=== PATIENT | male | born 1965 | race African-American/Black ===

== ENCOUNTER 2017-10-15 11:06 | Inpatient (IN) | payer MEDICAID, OTHER ==
[2017-10-15 11:36] LABS: ABS Basophils 0 10^3/ul (0-0.2); ABS Eosinophils 0.2 10^3/ul (0-0.6); ABS Lymphocytes 1.8 10^3/ul (1.0-4.8); ABS Monocytes 0.4 10^3/ul (0-0.8); ABS Neutrophils 2.8 10^3/ul (1.5-7.7); ABS Nucleated RBC 0 10^3/ul; Eosinophil % 3.5 % (0-6); Hematocrit 40 % (42-52); Hemoglobin 13.7 g/dl (14.0-18.0); Lymphocyte % 34.6 % (25-47); Mean Corpuscular HGB Conc 34 g/dl (31-36); Mean Corpuscular Hemoglobin 32 pg (27-31); Mean Corpuscular Volume 93 fL (80-94); Mean Platelet Volume 7.6 um3 (7.4-10.4); Nucleated Red Blood Cells % 0; Platelet Count 179 10^3/ul (150-450); Red Blood Count 4.34 10^6/ul (4.0-5.4); Red Cell Distribution Width 14 % (10.5-15); White Blood Count 5.3 10^3/ul (3.5-10.8)
[2017-10-15 11:40] LABS: Urine Appearance Clear; Urine Blood Negative (Negative); Urine Color Yellow; Urine Ketones Negative (Negative); Urine Protein Negative (Negative); Urine Specific Gravity 1.014 (1.010-1.030); Urine Urobilinogen Negative (Negative)
[2017-10-15 11:56] LABS: EGFR Non-African American 87.5 (>60)
[2017-10-15] MEDS ORDERED: LORazepam TAB(*) 1 MG PO ONE (17:19)
[2017-10-15] MEDS ORDERED: Haloperidol TAB* 5 MG PO ONE (17:19)
[2017-10-15] MEDS ORDERED: chlorproMAZINE TAB* 50 MG PO PRN (21:00)
[2017-10-15] MEDS ORDERED: diPHENhydraMINE PO* 50 MG PO PRN (21:00)
[2017-10-16] MEDS ORDERED: Acetaminophen TAB* 325 MG PO PRN (00:14)
[2017-10-16] MEDS ORDERED: Al Hydrox/Mg Hydrox/Simet LIQ* 30 ML UDC PO PRN (00:14)
--- NOTE | 2017-10-16 01:28 | ED ---
Victor M Nolan Rebecca, scribed for Aleksandr Kimball MD on 10/15/17 at 2100 . Progress - Progress Note Progress Note: Pt was signed out by Dr. Zeng, pending dispo, awaiting MHE. Course/Dx - Course Course Of Treatment: Pt was signed out by Dr. Zeng, pending dispo, awaiting MHE. Upon completion of MHE and consultation with Dr. Mendoza it has been determined that the pt will be admitted. He will be admitted with a Dx of polysubstance abuse. - Diagnoses Provider Diagnoses: Polysubstance abuse Discharge - Sign-Out/Discharge Documenting (check all that apply): Discharge/Admit/Transfer - Admit, Receiving Sign-Out Receiving patient FROM: Elijah Zeng - Discharge Plan Condition: Stable [place] [place]errals: Jose De Jesus Gonzalez MD [Primary Care Provider] - The documentation as recorded by the Victor M hope Rebecca accurately reflects the service I personally performed and the decisions made by , Aleksandr Kimball MD.
[2017-10-16] MEDS ORDERED: Vitamin THERAPEUTIC TAB PO SCH (09:00)
--- NOTE | 2017-10-16 10:44 | HP ---
H&P (Free Text) History and Physical: Psychiatric Attending History and Physical NAME: Bernardo Nelson : 1965 AGE: 52 PROVIDER: Eladio Black D.O. DATE OF ADMISSION: 10/16/2017 JUSTIFICATION FOR ADMISSION: Patient transferred to ED by inpatient drug rehabilitation program after verbalizing suicidal ideation . Patient requires 24 hour supervision on locked inpatient psychiatric unit as he is dangerous to self. He also requires imminent treatment for depression to stabalize his mental status. CHIEF COMPLAINT: "...I was thinking about my mother and got really depressed... 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 Patient reports that he had oset of alcohol and cannabis use at age 25 and onset of depression in his early 30's. He denies prior history of psychiatric admission but has multiple inpatient drug rehab admissions. Patient reports that he has been receiving outpatient treatment for his depression and substance use disorders for the past 20 years. longest sobriety (from ETOH) was 2 years which ended about 3 months ago when he relapsed. He reports that he had one suicide attempt in 2005 (ingested antifreeze) which was impulsive and occurred soon after learning that his child of SIDS. He called an ambulance, was treated in ED and released. Patient is receiving [facility] substance use services, case management and housing through [facility] ([facility] He has his own apartment which was obtained for him by this program. Patient reports that he has been poorly compliant with appointments to his therapist/case packer and is not receiving medication management through [facility] provider. Patient reports that he inconsistently takes his medication and doesnt have a regular provider who prescribes it. He will go to [facility] at [facility] when he runs out of medication. Patient went to [facility] for detox several weeks ago and subsequently was transferred to [facility] [place] where he completed 2 weeks of inpatient drug rehab. Upon discharge, he began drinking and after 3 days he brought himself to [facility] where he was transferred to [facility] for another inpatient rehabilitation stay. Patient reports that he stopped his psychiatric medications about one week ago and was beginning to feel depressed. He was in a therapy group and other peers were talking about family members who had . Patient reports this was a trigger for him to think about the of his mother 6 months ago. He reports that he never cried at the and to this day has not grieved but suppressed feelings. He reports he became despondent that day and told a staff member during a one to one that he was not feeling safe. He was subsequently [place] [facility] [place] psychiatric assessment of his safety and stabalization. PAST PSYCHIATRIC HISTORY: see HPI above. no history of SIB. denies inpatient psychiatric treatment in past other than as part of a dual diagnosis drug rehabilitation admission. SUBSTANCE ABUSE HISTORY: began using Cannabis and Alcohol at age 25. smokes cannabis daily. patient reports that he has struggled with alcohol use for past 25 years. He prefers beer and often will drink up to a case of beer daily. denies history of blackouts, withdrawal seizures, delirium tremens in past. 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 denies any other known medical probelms CURRENT HOME MEDICATIONS: Acetaminophen TAB* [Tylenol TAB*] 650 mg PO Q4H PRN 10/15/17 [History Confirmed 10/15/17] Folic Acid TAB* [Folvite TAB*] 1 mg PO DAILY 10/15/17 [History Confirmed ] Gabapentin CAP(*) [Neurontin 100 mg CAP(*)] 100 mg PO TID 10/15/17 [History Confirmed 10/15/17] Ibuprofen TAB* [Advil TAB*] 400 mg PO Q4HR PRN 10/15/17 [History Confirmed 10/15] Melatonin 5 mg PO BEDTIME 10/15/17 [History Confirmed 10/15/17] Multivitamins/Minerals TAB* [Theragran/minerals TAB*] 1 tab PO DAILY 10/15/17 [ History Confirmed 10/15/17] Nicotine Lozenge* 1 mg PO Q2H PRN 10/15/17 [History Confirmed 10/15/17] Sertraline* [Zoloft*] 25 mg PO DAILY 10/15/17 [History Confirmed 10/15/17] Thiamine TAB* [Vitamin B-1 TAB*] 100 mg PO DAILY 10/15/17 [History Confirmed 09/27] hydrOXYzine HCL TAB* [Atarax 25 MG TAB*] 25 mg PO QID PRN 10/15/17 [History Confirmed 10/15/17] traZODone TAB* [Desyrel TAB*] 50 mg PO BEDTIME 10/15/17 [History Confirmed 10/15] ALLERGIES: SHELLFISH FAMILY PSYCHIATRIC HISTORY: none FAMILY/PSYCHOSOCIAL HISTORY: patient reports that he was an only child and was raised by his mother (who he reports was a physician) and his father (who he reports was an radiological engineer) in [place]. denies history of trauma growing up. graduated high school has worked sporadically including several years at [employer] in [facility] but often was fired from jobs due to poor work performance secondary to his substance use. He reports that he lived with mother of his 4 daughters for many years and that together they raised their children. mother of his daughters several years ago of poisonous inhalation while cleaning bathroom. denies current legal probelms. denies being on probation or parole. REVIEW OF SYSTEMS: 14 point review of systems is non contributory: denies blurry vision, photophobia, eye pain, upper respiratory symptoms, dizziness, malaise, fatigue, lethargy, fever, neck stiffness, ear pain, rash, head ache, difficulty walking, change in gait, tremor, tics, involuntary movements, sob, excercise intolerance, chest pain, palpitations, bounding pulse, abdominal pain, nausea, vomiting, diarrhea, constipation, change in bowel consistency, body pain, swelling of extremities, poor coordination, masses in neck, groin or axillae PHYSICAL EXAMINATION: Appearance: well appearing, no pain distress, Well-nourished, calm,cooperative Skin: Warm, color reflects adequate perfusion, no evidence of self harm Head: Normal Head/Face inspection, Atraumatic Eyes: Conjunctiva clear ENT: Normal inspection Neck: Supple, no nodes, no JVD. Respiratory: Lungs clear, Normal breath sounds, no respiratory distress, 6 cm well healed scar below left clavicle on anterior chest. Cardio: RRR, No murmur, pulses normal, brisk capillary refill Abdomen: soft, nontender, + bowel sounds, no masses palpable, no HSM Musculoskeletal: Strength Intact/ ROM intact. No calf tenderness. No edema. Neuro: Alert and orietnedx3, muscle tone normal, no focal deficits, speech clear , DTR's normoreflexive in upper and lower extremities, strength 5/5 and bilaterally symmetric in upper and lower extremities. no tremor or evidence of EPS Vital Signs: Temp Pulse Resp BP Pulse Ox 97.9 F 86 18 93/68 100 10/16/17 07:44 10/16/17 07:44 10/16/17 07:44 10/16/17 07:44 10/16/17 07:44 MENTAL STATUS EXAMINATION: Patient was seated in group when I approached him for an interview. He was quite jovial and outspoken announcing that he was happy to be seeing his doctor and thanked me for "saving him from the group" patient is dressed casually. He has adequate hygiene. speech normal rate, volume, and rhythm. normal fluency and spontaneity. patient talks somewhat glibly and appears to favor saying things that he believes will make him appear favorable. Thought process goal directed. Thought content: patient denies SI,HI, AH,VH. no evidence of delusions, paranoid ideation. no evidence of thought disorder. Mood: patient reports that he is not feeling depressed or sad today. patient's affect is not dysphoric, flat or constricted. He shows broad range of affect including smiling. He makes good eye contact and appears to enjoy conversing with interviewer. He reports that his alcohol and marijuana use causes him to feel depressed especially after having binged. He states that he does not wish to return to [facility] inpatient program and would prefer to terminate from program and return to his outpatient substance treatment program in [place]. alert fully oriented. memory,concentration and attention span intact. insight intact judgment appears intact. LABORATORY DATA: Laboratory Results - last 24 hr 10/15/17 10/15/17 10/15/17 11:21 11:21 11:24 WBC 5.3 RBC 4.34 Hgb 13.7 L Hct 40 L MCV 93 MCH 32 H MCHC 34 RDW 14 Plt Count 179 MPV 7.6 Neut % (Auto) 53.5 Lymph % (Auto) 34.6 Dawes % (Auto) 7.7 H Eos % (Auto) 3.5 Baso % (Auto) 0.7 Absolute Neuts (auto) 2.8 Absolute Lymphs (auto) 1.8 Absolute Monos (auto) 0.4 Absolute Eos (auto) 0.2 Absolute Basos (auto) 0 Absolute Nucleated RBC 0 Nucleated RBC % 0 Sodium 142 Potassium 3.7 Chloride 106 Carbon Dioxide 30 Anion Gap 6 BUN 13 Creatinine 0.91 Est GFR ( Amer) 112.5 Est GFR (Non-Af Amer) 87.5 BUN/Creatinine Ratio 14.3 Glucose 144 H Hemoglobin A1c Calcium 9.5 Total Bilirubin 0.20 AST 15 ALT 13 Alkaline Phosphatase 59 Total Protein 6.7 Albumin 4.1 Globulin 2.6 Albumin/Globulin Ratio 1.6 Triglycerides Cholesterol LDL Cholesterol HDL Cholesterol TSH 1.47 Urine Color Yellow Urine Appearance Clear Urine pH 6.0 Ur Specific Silver Star 1.014 Urine Protein Negative Urine Ketones Negative Urine Blood Negative Urine Nitrate Negative Urine Bilirubin Negative Urine Urobilinogen Negative Ur Leukocyte Esterase Negative Urine Glucose Negative Urine Ascorbic Acid * A Salicylates < 2.50 Urine Opiates Screen Acetaminophen < 15 Ur Barbiturates Screen Ur Phencyclidine Scrn Ur Amphetamines Screen U Benzodiazepines Scrn Urine Cocaine Screen U Cannabinoids Screen Serum Alcohol < 10 10/15/17 10/16/17 10/16/17 11:24 09:17 09:17 WBC RBC Hgb Hct MCV MCH MCHC RDW Plt Count MPV Neut % (Auto) Lymph % (Auto) Dawes % (Auto) Eos % (Auto) Baso % (Auto) Absolute Neuts (auto) Absolute Lymphs (auto) Absolute Monos (auto) Absolute Eos (auto) Absolute Basos (auto) Absolute Nucleated RBC Nucleated RBC % Sodium Potassium Chloride Carbon Dioxide Anion Gap BUN Creatinine Est GFR ( Amer) Est GFR (Non-Af Amer) BUN/Creatinine Ratio Glucose Hemoglobin A1c 6.0 H Calcium Total Bilirubin AST ALT Alkaline Phosphatase Total Protein Albumin Globulin Albumin/Globulin Ratio Triglycerides 207 Cholesterol 177 LDL Cholesterol 78 HDL Cholesterol 57.6 TSH Urine Color Urine Appearance Urine pH Ur Specific Silver Star Urine Protein Urine Ketones Urine Blood Urine Nitrate Urine Bilirubin Urine Urobilinogen Ur Leukocyte Esterase Urine Glucose Urine Ascorbic Acid Salicylates Urine Opiates Screen None detected Acetaminophen Ur Barbiturates Screen None detected Ur Phencyclidine Scrn None detected Ur Amphetamines Screen None detected U Benzodiazepines Scrn Presumptive positive A Urine Cocaine Screen None detected U Cannabinoids Screen None detected Serum Alcohol Laboratory Last Values WBC 5.3 10^3/ul (3.5-10.8) 10/15/17 11:21 RBC 4.34 10^6/ul (4.0-5.4) 10/15/17 11:21 Hgb 13.7 g/dl (14.0-18.0) L 10/15/17 11:21 Hct 40 % (42-52) L 10/15/17 11:21 MCV 93 fL (80-94) 10/15/17 11:21 MCH 32 pg (27-31) H 10/15/17 11:21 MCHC 34 g/dl (31-36) 10/15/17 11:21 RDW 14 % (10.5-15) 10/15/17 11:21 Plt Count 179 10^3/ul (150-450) 10/15/17 11:21 MPV 7.6 um3 (7.4-10.4) 10/15/17 11:21 Neut % (Auto) 53.5 % (38-83) 10/15/17 11:21 Lymph % (Auto) 34.6 % (25-47) 10/15/17 11:21 Dawes % (Auto) 7.7 % (0-7) H 10/15/17 11:21 Eos % (Auto) 3.5 % (0-6) 10/15/17 11:21 Baso % (Auto) 0.7 % (0-2) 10/15/17 11:21 Absolute Neuts (auto) 2.8 10^3/ul (1.5-7.7) 10/15/17 11:21 Absolute Lymphs (auto) 1.8 10^3/ul (1.0-4.8) 10/15/17 11:21 Absolute Monos (auto) 0.4 10^3/ul (0-0.8) 10/15/17 11:21 Absolute Eos (auto) 0.2 10^3/ul (0-0.6) 10/15/17 11:21 Absolute Basos (auto) 0 10^3/ul (0-0.2) 10/15/17 11:21 Absolute Nucleated RBC 0 10^3/ul 10/15/17 11:21 Nucleated RBC % 0 10/15/17 11:21 Sodium 142 mmol/L (139-145) 10/15/17 11:21 Potassium 3.7 mmol/L (3.5-5.0) 10/15/17 11:21 Chloride 106 mmol/L (101-111) 10/15/17 11:21 Carbon Dioxide 30 mmol/L (22-32) 10/15/17 11:21 Anion Gap 6 mmol/L (2-11) 10/15/17 11:21 BUN 13 mg/dL (6-24) 10/15/17 11:21 Creatinine 0.91 mg/dL (0.67-1.17) 10/15/17 11:21 Est GFR ( Amer) 112.5 (>60) 10/15/17 11:21 Est GFR (Non-Af Amer) 87.5 (>60) 10/15/17 11:21 BUN/Creatinine Ratio 14.3 (8-20) 10/15/17 11:21 Glucose 144 mg/dL (70-100) H 10/15/17 11:21 Hemoglobin A1c 6.0 % (4.0-5.6) H 10/16/17 09:17 Calcium 9.5 mg/dL (8.6-10.3) 10/15/17 11:21 Total Bilirubin 0.20 mg/dL (0.2-1.0) 10/15/17 11:21 AST 15 U/L (13-39) 10/15/17 11:21 ALT 13 U/L (7-52) 10/15/17 11:21 Alkaline Phosphatase 59 U/L (34-104) 10/15/17 11:21 Total Protein 6.7 g/dL (6.4-8.9) 10/15/17 11:21 Albumin 4.1 g/dL (3.2-5.2) 10/15/17 11:21 Globulin 2.6 g/dL (2-4) 10/15/17 11:21 Albumin/Globulin Ratio 1.6 (1-3) 10/15/17 11:21 Triglycerides 207 mg/dL 10/16/17 09:17 Cholesterol 177 mg/dL 10/16/17 09:17 LDL Cholesterol 78 mg/dL 10/16/17 09:17 HDL Cholesterol 57.6 mg/dL 10/16/17 09:17 TSH 1.47 mcIU/mL (0.34-5.60) 10/15/17 11:21 Urine Color Yellow 10/15/17 11:24 Urine Appearance Clear 10/15/17 11:24 Urine pH 6.0 (5-9) 10/15/17 11:24 Ur Specific Silver Star 1.014 (1.010-1.030) 10/15/17 11:24 Urine Protein Negative (Negative) 10/15/17 11:24 Urine Ketones Negative (Negative) 10/15/17 11:24 Urine Blood Negative (Negative) 10/15/17 11:24 Urine Nitrate Negative (Negative) 10/15/17 11:24 Urine Bilirubin Negative (Negative) 10/15/17 11:24 Urine Urobilinogen Negative (Negative) 10/15/17 11:24 Ur Leukocyte Esterase Negative (Negative) 10/15/17 11:24 Urine Glucose Negative (Negative) 10/15/17 11:24 Urine Ascorbic Acid * (Negative) A 10/15/17 11:24 Salicylates < 2.50 mg/dL (<30) 10/15/17 11:21 Urine Opiates Screen None detected (None Detect) 10/15/17 11:24 Acetaminophen < 15 mcg/mL 10/15/17 11:21 Ur Barbiturates Screen None detected (None Detect) 10/15/17 11:24 Ur Phencyclidine Scrn None detected (None Detect) 10/15/17 11:24 Ur Amphetamines Screen None detected (None Detect) 10/15/17 11:24 U Benzodiazepines Scrn Presumptive positive (None Detect) A 10/15/17 11:24 Urine Cocaine Screen None detected (None Detect) 10/15/17 11:24 U Cannabinoids Screen None detected (None Detect) 10/15/17 11:24 Serum Alcohol < 10 mg/dL (<10) 10/15/17 11:21 IMPRESSION: 52 yo with history of depression and chronic substance use (alcohol and Cannabis ) transferred from [facility] for verbalizing that he was not feeling safe. Patient's mental status does not reveal current depressive syndrome. patient denies suicidal ideation at this time. will monitor for another 24 hours and if patient remains euthymic and denies SI, we will discharge him back to [facility] inpatient rehab program. DIAGNOSES: non compliance with medication alcohol use disorder Cannabis Use disorder unspecified depressive disorder PLAN: admit to [facility] on voluntary status. full code. will change patient to q 30 min observation status monitor patient 24 hours. if mood remains euthymic and no indication of SI, we will transfer patient back to [facility]. individual, group and milieu therapy. social science research assistant to see patient for assessment, therapy and discharge planning. daily reassessment by psychiatrist will restart Zoloft 150 mg qhs, Trazodone 50 mg qhs, Seroquel 100mg qhs with repeat X 1 prn insomnia, Gabapentin 100 mg TID, asa 81 mg daily, multivitamin daily labs al within normal limits
[2017-10-16] MEDS ORDERED: Sertraline* 100 MG TAB PO ONE (12:43)
[2017-10-16] MEDS ORDERED: QUEtiapine TAB* 100 MG PO PRN (12:44)
[2017-10-16] MEDS: Gabapentin CAP(*) 100 MG PO SCH ×2 (14:25→22:08)
[2017-10-16] MEDS: Multivitamins/Minerals TAB PO SCH (17:19)
[2017-10-16] MEDS: Aspirin EC TAB* 81 MG TAB.EC PO SCH (17:19)
[2017-10-16] MEDS ORDERED: QUEtiapine TAB* 100 MG PO SCH (21:00)
[2017-10-16] MEDS ORDERED: traZODone TAB* 50 MG TAB PO SCH (21:00)
[2017-10-17 07:23] VITALS: BP 107/81
[2017-10-17] MEDS ORDERED: Sertraline* 100 MG TAB PO SCH (09:00)
[2017-10-17] MEDS: Gabapentin CAP(*) 100 MG PO SCH ×2 (09:32→13:55)
[2017-10-17] MEDS: Multivitamins/Minerals TAB PO SCH (09:32)
[2017-10-17] MEDS: Aspirin EC TAB* 81 MG TAB.EC PO SCH (09:32)
--- NOTE | 2017-10-17 10:45 | DS ---
Discharge Planning - Discharge Planning Medications: Current Medications Acetaminophen (Tylenol Tab*) 650 mg PO Q4H PRN PRN Reason: PAIN or TEMP > 101 F Al Hydrox/Mg Hydrox/Simethicone (Maalox Plus*) 30 ml PO Q4H PRN PRN Reason: INDIGESTION Aspirin (Aspirin Ec Tab*) 81 mg PO DAILY [facility] Last Admin: 10/17/17 09:32 Dose: 81 mg Chlorpromazine HCl (Thorazine Tab*) 50 mg PO ONCE PRN PRN Reason: MD DISCRETION Diphenhydramine HCl (Benadryl Po*) 50 mg PO ONCE PRN PRN Reason: MD DISCRETION Gabapentin (Neurontin Cap(*)) 100 mg PO TID [facility] Last Admin: 10/17/17 09:32 Dose: 100 mg Multivitamins/Minerals (Theragran/Minerals Tab*) 1 tab PO DAILY [facility] Last Admin: 10/17/17 09:32 Dose: 1 tab Quetiapine Fumarate (Seroquel Tab*) 100 mg PO BEDTIME [facility] Last Admin: 10/16/17 22:09 Dose: 100 mg Quetiapine Fumarate (Seroquel Tab*) 100 mg PO BEDTIME PRN PRN Reason: insomnia Sertraline HCl (Zoloft*) 150 mg PO DAILY [facility] Last Admin: 10/17/17 09:32 Dose: 150 mg Trazodone HCl (Desyrel Tab*) 50 mg PO BEDTIME [facility] Last Admin: 10/16/17 22:09 Dose: 50 mg Discharge Planning: Prescriptions provided for discharge [] Yes [] No Follow up care details as per social work arrangements. Patient response to discharge plan: [] eager for discharge [] agreeable with discharge plan [] ambivalent about discharge [] disagrees with discharge today
--- NOTE | 2017-10-18 08:41 | ED ---
Saw Nolan Stephanie, scribed for Elijah Zeng MD on 10/15/17 at 1130 . Psychiatric Complaint - HPI Summary HPI Summary: The pt is a 52 y/o M BIBA to the ED with c/o SI that began about 6 months ago s/ p of mother. He states he does not feel safe alone and he does not feel like living. Symptoms include sleep disturbance and prior attempt of suicide. He states he stopped taking his medications 2 weeks ago because he felt as though he didnt need them anymore. The pt drinks about one case of ETOH per day but has not drank ETOH since 10/08/17. He reports opiates in his system currently due to detox. - History Of Current Complaint Chief Complaint: EDMentalHealth Time Seen by Provider: 10/15/17 11:10 Hx Obtained From: Patient Onset/Duration: Gradual Onset, Lasting Weeks, Still Present Timing: Constant Severity Currently: Moderate Character: Depressed Aggravating Factor(s): Recent Stress - of mother 6 months ago Alleviating Factor(s): Nothing Associated Signs And Symptoms: Positive: Sleep Disturbance Has Suicidal: Reports: Thoughts - Allergies/Home Medications Allergies/Adverse Reactions: Allergies Allergy/AdvReac Type Severity Reaction Status Date / Time shellfish derived Allergy Severe Airway Verified 10/15/17 11:36 Obstruction Home Medications: Home Medications Acetaminophen TAB* [Tylenol TAB*] 650 mg PO Q4H PRN 10/15/17 [History Confirmed 10/15/17] Folic Acid TAB* [Folvite TAB*] 1 mg PO DAILY 10/15/17 [History Confirmed ] Gabapentin CAP(*) [Neurontin 100 mg CAP(*)] 100 mg PO TID 10/15/17 [History Confirmed 10/15/17] Ibuprofen TAB* [Advil TAB*] 400 mg PO Q4HR PRN 10/15/17 [History Confirmed 10/15] Melatonin 5 mg PO BEDTIME 10/15/17 [History Confirmed 10/15/17] Multivitamins/Minerals TAB* [Theragran/minerals TAB*] 1 tab PO DAILY 10/15/17 [ History Confirmed 10/15/17] Nicotine Lozenge* 1 mg PO Q2H PRN 10/15/17 [History Confirmed 10/15/17] Sertraline* [Zoloft*] 25 mg PO DAILY 10/15/17 [History Confirmed 10/15/17] Thiamine TAB* [Vitamin B-1 TAB*] 100 mg PO DAILY 10/15/17 [History Confirmed 09/27] hydrOXYzine HCL TAB* [Atarax 25 MG TAB*] 25 mg PO QID PRN 10/15/17 [History Confirmed 10/15/17] traZODone TAB* [Desyrel TAB*] 50 mg PO BEDTIME 10/15/17 [History Confirmed 10/15] PMH/Surg Hx/FS Hx/Imm Hx Sensory History: Denies: Hx Legally Blind EENT History: Denies: Hx Deafness - Surgical History Surgery Procedure, Year, and Place: NONE Infectious Disease History: No Infectious Disease History: Denies: Traveled Outside the [place] in Last 30 Days - Family History Known Family History: Negative: Renal Disease - Social History Occupation: Works From/At Home Lives: With Family Alcohol Use: Daily Hx Substance Use: Yes Substance Use Type: Reports: Marijuana Substance Use Comment - Amount & Last Used: freq Hx Tobacco Use: No Smoking Status (MU): Never Smoked Tobacco Have You Smoked in the Last Year: No Review of Systems Negative: Fever, Chills Negative: Erythema Negative: Sore Throat Negative: Chest Pain Negative: Shortness Of Breath, Cough Negative: Abdominal Pain, Vomiting, Nausea Negative: dysuria, hematuria Negative: Myalgia, Edema Negative: Rash Neurological: Negative - dizziness Positive: Depressed, Other - SI All Other Systems Reviewed And Are Negative: Yes Physical Exam - Summary Physical Exam Summary: Constitutional: Well-developed, Well-nourished, Alert. (-) Distressed Skin: Warm, Dry HENT: Normocephalic; Atraumatic Eyes: Conjunctiva normal Neck: Musculoskeletal ROM normal neck. (-) JVD, (-) Stridor, (-) Tracheal deviation Cardio: Rhythm regular, rate normal, Heart sounds normal; Intact distal pulses; The pedal pulses are 2+ and symmetric. Radial pulses are 2+ and symmetric. (-) Murmur Pulmonary/Chest wall: Effort normal. (-) Respiratory distress, (-) Wheezes, (-) Rales Abd: Soft, (-) Tenderness, (-) Distension, (-) Guarding, (-) Rebound Musculoskeletal: (-) Edema Lymph: (-) Cervical adenopathy Neuro: Alert, Oriented x3 Psych: Mood and affect Normal Triage Information Reviewed: Yes Vital Signs On Initial Exam: Initial Vitals Temp Pulse Resp BP Pulse Ox 98.2 F 84 18 105/69 98 10/15/17 11:08 10/15/17 11:08 10/15/17 11:08 10/15/17 11:08 10/15/17 11:08 Vital Signs Reviewed: Yes Diagnostics - Vital Signs Vital Signs Temp Pulse Resp BP Pulse Ox 10/15/17 11:08 98.2 F 84 18 105/69 98 - Laboratory Result Diagrams: 10/15/17 11:21 10/15/17 11:21 Lab Statement: Any lab studies that have been ordered have been reviewed, and results considered in the medical decision making process. - EKG 11:21 Cardiac Rate: Other Rate - Paced at 100 BPM EKG Rhythm: Sinus Rhythm - Paced Course/Dx - Course Course Of Treatment: This pt is a sign out to Dr. Kimball at shift change pending MHE. - Differential Dx/Clinical Impression Provider Diagnosis: Suicidal ideation Discharge - Sign-Out/Discharge Documenting (check all that apply): Sign-Out Patient Signing out patient TO: Aleksandr Kimball - Pending MHE. - Discharge Plan Condition: Stable Referrals: Lisa DEUTSCH,Jose De Jesus Pineda [Primary Care Provider] - The documentation as recorded by the Saw hope Stephanie accurately reflects the service I personally performed and the decisions made by , Elijah Zeng MD.
== END 2017-10-17 14:45 | DRG 754 ==
LOC: ED 11:06 → BSU 22:49
PROVIDERS: ADMIT Psychiatry & Neurology Psychiatry; ATTEND Psychiatry & Neurology Psychiatry
DX: F32.9 Major depressive disorder, single episode, unspecified (principal); R45.851 Suicidal ideations; F10.10 Alcohol abuse, uncomplicated; F12.10 Cannabis abuse, uncomplicated; Z91.14 Patient's other noncompliance with medication regimen; Y90.0 Blood alcohol level of less than 20 mg/100 ml; R00.1 Bradycardia, unspecified; Z95.0 Presence of cardiac pacemaker; Z79.1 Long term (current) use of non-steroidal anti-inflammatories (NSAID); Z79.899 Other long term (current) drug therapy; Z91.013 Allergy to seafood
CPT/HCPCS: 36415; 80053; 80061; 80307; 80320; 80329; 81003; 83036; 84443; 85025; 93005; 99222; 99238; 99285; A9270-GY; G0480